=== PATIENT | male | born 1975 | race Caucasian/White ===

== ENCOUNTER 2023-06-07 05:19 | Day surgery (SDC) | payer BC, OTHER ==
[2023-06-05 11:58] VITALS: BMI 27.3
[2023-06-07 11:27] VITALS: TEMP 98
[2023-06-07 11:38] VITALS: PULSE 58
[2023-06-07 11:51] VITALS: BP 98/50; RESP 15
== END 2023-06-07 12:00 | disposition home or self-care (01) ==
LOC: JASU-ENDO 05:19
PROVIDERS: ATTEND Student in an Organized Health Care Education/Training Program
PROC: 0DBH8ZX Excision of Cecum, Via Natural or Artificial Opening Endoscopic, Diagnostic (ICD-10-PCS; principal; 2023-06-07 10:15)
DX: Z12.11 Encounter for screening for malignant neoplasm of colon (principal); D12.0 Benign neoplasm of cecum
CPT/HCPCS: 88305-TC